=== PATIENT | female | born 1975 | race Caucasian/White ===

== ENCOUNTER 2017-01-15 14:18 | Emergency (ER) | payer OTHER ==
[~2017-01-15] VITALS: Ht 160 cm; Wt 65.8 kg
[~2017-01-15 14:18] MED LIST: ABILIFY10 MG PO; ADVAIR 250-501 EACH; FLEXERIL; IBUPROFEN 800800 M1 PO; LAMICTAL 25 MG25 M1 PO; NORCO 5-325 TA1 EACH PO; SPIRIVA
[2017-01-15 15:55] VITALS: BP 113/85
== END 2017-01-15 16:09 | disposition home or self-care (01) ==
LOC: ER 14:18
DX: S51.812A Laceration without foreign body of left forearm, initial encounter (principal); J45.909 Unspecified asthma, uncomplicated; F17.210 Nicotine dependence, cigarettes, uncomplicated; Z85.43 Personal history of malignant neoplasm of ovary; Z88.8 Allergy status to other drugs, medicaments and biological substances; Z88.6 Allergy status to analgesic agent; W25.XXXA Contact with sharp glass, initial encounter; Y93.89 Activity, other specified; Y92.89 Other specified places as the place of occurrence of the external cause; Y99.8 Other external cause status